=== PATIENT | female | born 1945 | race Caucasian/White ===

== ENCOUNTER 2017-01-08 04:29 | Emergency (ER) | payer MEDICARE, OTHER ==
[~2017-01-08] VITALS: Ht 172.7 cm; Wt 64.1 kg
[2017-01-08 04:33] VITALS: BP 140/77; PULSE 71; TEMP 98.7
[2017-01-08] MEDS ORDERED: LEVOXYL0.075 MG PO (04:39)
[2017-01-08] MEDS ORDERED: OCUVITE1 TA1 PO (04:39)
[2017-01-08] MEDS ORDERED: FLEXERIL 1010 MG/TAB PO (05:38)
[2017-01-08] MEDS ORDERED: TYLENOL W/COD1 UDTAB PO (05:38)
[2017-01-08] MEDS ORDERED: VOLTAREN 75 DR75 MG PO (05:38)
== END 2017-01-08 06:00 | disposition home or self-care (01) ==
LOC: COL.ER 04:29
DX: S16.1XXA Strain of muscle, fascia and tendon at neck level, initial encounter (principal); X50.1XXA Overexertion from prolonged static or awkward postures, initial encounter; Y92.007 Garden or yard of unspecified non-institutional (private) residence as the place of occurrence of the external cause; E03.9 Hypothyroidism, unspecified

== ENCOUNTER → 2017-03-08 | Outpatient (CLI) | payer MEDICARE, OTHER ==
[~2017-03-08] MED LIST: FLEXERIL 1010 MG/TAB PO; LEVOXYL0.075 MG PO; OCUVITE1 TA1 PO; TYLENOL W/COD1 UDTAB PO; VOLTAREN 75 DR75 MG PO
== END ==
LOC: COL.RAD 15:10
DX: K63.89 Other specified diseases of intestine (principal); N20.0 Calculus of kidney
CPT/HCPCS: Q9967

== ENCOUNTER 2017-05-09 14:07 | Inpatient (IN) | payer MEDICARE, OTHER ==
[~2017-05-09] VITALS: Ht 172.7 cm; Wt 60.7 kg
[2017-05-24] VITALS (11 sets, daily range): BP systolic 130–162; BP diastolic 56–89; PULSE 68–95; TEMP 97.1–98.6
[2017-05-24] MEDS ORDERED: SYNTHROID0.075 MG/T PO (10:27)
[2017-05-25 02:01] VITALS: BP 106/89; PULSE 76; TEMP 98.4
[2017-05-25 05:57] VITALS: BP 112/54; BP 99/60; PULSE 72; PULSE 84; TEMP 98.4; TEMP 98.8
[2017-05-25 07:57] LABS: HEMATOCRIT 33.7 % (37.0-47.0); HEMOGLOBIN 11.5 g/dl (12.5-16.0)
[2017-05-25 08:12] LABS: CALCIUM 8.9 mg/dL (8.4-10.2); CREATININE, serum 0.6 mg/dL (0.52-1.25); POTASSIUM 3.4 mmol/L (3.4-5.0)
[2017-05-25 09:41] VITALS: BP 114/59; PULSE 84; TEMP 98
[2017-05-25 15:00] VITALS: BP 127/54; PULSE 90; TEMP 99.3
[2017-05-25 18:25] VITALS: BP 123/59; PULSE 89; TEMP 99.9
[2017-05-25 22:02] VITALS: BP 130/63; PULSE 86; TEMP 98.6
[2017-05-26 06:31] VITALS: BP 131/61; PULSE 88; TEMP 98.6
[2017-05-26 09:20] VITALS: BP 119/61; PULSE 94; TEMP 98.5
[2017-05-26 14:34] VITALS: BP 127/66; PULSE 77; TEMP 98.3
[2017-05-26 17:15] VITALS: BP 122/59; PULSE 81; TEMP 98.8
[2017-05-26 21:34] VITALS: BP 121/70; PULSE 80; TEMP 98.9
[2017-05-27 05:38] VITALS: BP 134/75; PULSE 87; TEMP 98.1
[2017-05-27] MEDS ORDERED: NORCO 325 MG-51 TAB PO (08:53)
== END 2017-05-27 09:34 | disposition home or self-care (01) | DRG 329 ==
LOC: OR 05-24 09:25 → SURG 05-24 09:25
PROVIDERS: Surgery
PROC: 8E0W4CZ Robotic Assisted Procedure of Trunk Region, Percutaneous Endoscopic Approach (ICD-10-PCS; 2017-05-24)
PROC: 0DBN4ZZ Excision of Sigmoid Colon, Percutaneous Endoscopic Approach (ICD-10-PCS; principal; 2017-05-24 11:30)
DX: K57.32 Diverticulitis of large intestine without perforation or abscess without bleeding (principal); E43 Unspecified severe protein-calorie malnutrition; K56.5 Intestinal adhesions [bands] with obstruction (postinfection)
CPT/HCPCS: A4315; A9284; J0694; J1100; J1170; J1650; J2175; J2405; J2550; J2704; J3010; J7042; J7120

== ENCOUNTER → 2017-08-30 | Outpatient (CLI) | payer MEDICARE, OTHER ==
[~2017-08-30] MED LIST changes: +NORCO 325 MG-51 TAB PO; +SYNTHROID0.075 MG/T PO; +ZOFRAN 4MG T4 MG/TAB PO
== END ==
LOC: MC.RAD 13:32
DX: Z12.31 Encounter for screening mammogram for malignant neoplasm of breast (principal)

== ENCOUNTER 2018-09-10 08:45 | Outpatient (RCR) | payer MEDICARE, OTHER | END 2018-10-31 | disposition home or self-care (01) | LOC: WSPT | DX: M54.42 Lumbago with sciatica, left side (principal) | CPT/HCPCS: G8978-GP; G8979-GP ==

== ENCOUNTER → 2018-09-18 | Outpatient (CLI) | payer MEDICARE, OTHER | LOC: MC.RAD 07:36 | DX: Z12.31 Encounter for screening mammogram for malignant neoplasm of breast (principal) ==

== ENCOUNTER → 2019-07-03 | Outpatient (CLI) | payer MEDICARE, OTHER | LOC: COL.RAD 08:00 | DX: M79.641 Pain in right hand (principal) | CPT/HCPCS: J3301; Q9967 ==

== ENCOUNTER → 2019-07-23 | Outpatient (CLI) | payer MEDICARE, OTHER | LOC: COL.CARD 10:54 | DX: R00.0 Tachycardia, unspecified (principal) ==

== ENCOUNTER → 2019-08-15 | Outpatient (CLI) | payer MEDICARE, OTHER | LOC: COL.VAS 13:07 | DX: I35.1 Nonrheumatic aortic (valve) insufficiency (principal) ==

== ENCOUNTER → 2019-10-23 | Outpatient (CLI) | payer MEDICARE, OTHER | LOC: MC.RAD 15:39 | DX: Z12.31 Encounter for screening mammogram for malignant neoplasm of breast (principal) ==

== ENCOUNTER 2020-01-21 13:00 | Outpatient (RCR) | payer MEDICARE, OTHER | END 2020-03-30 | disposition still patient (30) | LOC: WSPT | DX: M54.42 Lumbago with sciatica, left side (principal) ==

== ENCOUNTER → 2020-11-30 | Outpatient (CLI) | payer MEDICARE, OTHER | LOC: MC.RAD 09:08 | DX: Z12.31 Encounter for screening mammogram for malignant neoplasm of breast (principal) ==

== ENCOUNTER → 2021-05-07 | Outpatient (CLI) | payer MEDICARE, OTHER | LOC: COL.RAD 15:15 | DX: R10.9 Unspecified abdominal pain (principal) ==

== ENCOUNTER 2021-06-24 08:30 | Outpatient (RCR) | payer MEDICARE, OTHER | END 2021-08-27 | disposition home or self-care (01) | LOC: PT.GENESIS | DX: M54.2 Cervicalgia (principal) ==

== ENCOUNTER → 2022-03-02 | Outpatient (CLI) | payer MEDICARE, OTHER | LOC: MC.RAD 07:28 | DX: Z12.31 Encounter for screening mammogram for malignant neoplasm of breast (principal) ==

== ENCOUNTER 2022-12-21 09:15 | Outpatient (RCR) | payer MEDICARE, OTHER | END 2022-12-25 | disposition home or self-care (01) | LOC: PT.GENESIS | DX: M79.605 Pain in left leg (principal) ==

== ENCOUNTER → 2024-03-11 | Outpatient (CLI) | payer MEDICARE, OTHER | LOC: MC.RAD 06:59 | DX: Z12.31 Encounter for screening mammogram for malignant neoplasm of breast (principal) ==

== ENCOUNTER → 2024-05-27 | Outpatient (RCR) | payer MEDICARE, OTHER | END | disposition home or self-care (01) | LOC: PT.GENESIS | DX: M25.511 Pain in right shoulder (principal) ==

== ENCOUNTER 2024-06-26 09:30 | Outpatient (RCR) | payer MEDICARE, OTHER | END 2024-06-27 10:24 | disposition home or self-care (01) | LOC: PT.GENESIS 09:30 | DX: M25.511 Pain in right shoulder (principal) ==